=== PATIENT | male | born 1995 | race Two or more races ===

== ENCOUNTER 2020-06-21 00:39 | Emergency (ER) | payer MEDICAID, OTHER ==
[~2020-06-21] VITALS: Ht 170.2 cm; Wt 69.4 kg
[2020-06-21 00:46] VITALS: BP 122/81
== END 2020-06-21 01:21 | disposition home or self-care (01) ==
LOC: ER 00:41
DX: F15.10 Other stimulant abuse, uncomplicated (principal); Z59.0 Homelessness